=== PATIENT | female | born 1965 | race Caucasian/White ===

== ENCOUNTER 2019-04-01 01:26 | Observation (INO) | payer SELFPAY ==
[2019-04-01] MEDS ORDERED: ACETAMINOPHEN 325 MG TABLET PO ONE (04:45)
--- NOTE | 2019-04-01 05:41 | ER Document Report ---
ED General - General Chief Complaint: Neck Pain >24hrs old Stated Complaint: NECK AND HEAD PAIN/FALL Time Seen by Provider: 04/01/19 04:45 TRAVEL OUTSIDE OF THE [place] IN LAST 30 DAYS: No - Related Data Allergies/Adverse Reactions: No Known Allergies Allergy (Unverified 05/14/13 06:21) Past Medical History - Social History Smoking Status: Current Every Day Smoker Chew tobacco use (# tins/day): No Frequency of alcohol use: None Drug Abuse: None Family History: CAD, DM, Hyperlipidemia, Hypertension, Malignancy Patient has suicidal ideation: No Patient has homicidal ideation: No Malignancy Medical History: Reports: Hx Breast Cancer Psychiatric Medical History: Reports: Hx Bipolar Disorder, Hx Depression Past Surgical History: Reports: Hx Tubal Ligation - Immunizations Immunizations up to date: No Hx Diphtheria, Pertussis, Tetanus Vaccination: No Physical Exam - Vital signs Vitals: Temp Pulse Resp BP Pulse Ox 97.7 F 82 18 131/82 H 100 04/01/19 01:35 04/01/19 01:35 04/01/19 01:35 04/01/19 01:35 04/01/19 01:35 - Notes Notes: Patient presents to the emergency department complaining of pain in the back of her neck this been going on for 3 weeks. She says about 3 weeks ago she tripped over a cat and fell backwards hitting her head. She was not knocked out and did not seek medical treatment. Since that time she is been having a pain in the neck which was with movement she has pain over the whole left side of her head. Denies any abnormal vision pain shortness of breath nausea vomiting or abdominal pain. She also indicates she is had some intermittent numbness in her left arm but no weakness at all. No numbness or weakness in the legs or in the right arm. Says is been taking large doses of Motrin for the past several days taken as much as 5 pills 3 or 4 times a day. She stopped taking that several days ago because she has had some mild abdominal discomfort this has resolved. Is not had any blood in her stools Past medical history for breast cancer diagnosed about 3 years ago. She has not had any treatment for Veronica says she has no insurance she is on no meds at this time Review of systems all systems reviewed were acutely negative except as in HPI PHYSICAL EXAMINATION: There is no reviewed and vital signs noted GENERAL: Well-appearing, well-nourished she is tearful and in mild distress from pain HEAD: Atraumatic, normocephalic. EYES: Pupils equal round and reactive to light, extraocular movements intact, sclera anicteric, conjunctiva are normal. ENT: , oropharynx clear without exudates. Moist mucous membranes. NECK: She has no tenderness in the midline but there is tenderness to the left of the midline. There is no step-off. She has decreased range of motion in all directions flexion extension LUNGS: Breath sounds clear to auscultation bilaterally and equal. No wheezes rales or rhonchi. HEART: Regular rate and rhythm without murmurs ABDOMEN: Soft, nontender, normoactive bowel sounds. No guarding, no rebound. No masses appreciated. EXTREMITIES: Nontender with no edema, left upper extremity she has full range of motion but she has pain with forced abduction to the left side of her neck Back is nontender NEUROLOGICAL: Alert and oriented x4. Cranial nerves symmetrical smile and facial expressions. Motor strength is 5/5 bilaterally in the upper and lower extremities are downgoing. Negative Romberg she is intact to pinprick and light touch in the upper lower extremities and of note motor strength in the left upper extremities 5/5 flexion extension of the elbow wrist and interosseous muscles PSYCH: Normal mood, normal affect. SKIN: Warm, Dry, normal turgor, no rashes or lesions noted. Course - Vital Signs Vital signs: Temp Pulse Resp BP Pulse Ox 97.7 F 82 18 131/82 H 100 04/01/19 01:35 04/01/19 01:35 04/01/19 01:35 04/01/19 01:35 04/01/19 01:35 - Transfer of Care Care transferred to following provider: DR KOEHLER Notes: 04/01/19 06:08 DR KOEHLER Discharge - Discharge Clinical Impression: Strain of neck Disposition: HOME, SELF-CARE
[2019-04-01] MEDS ORDERED: HYDROCODONE/ACETAMINOPHEN 5-325 MG TABLET PO ONE (06:00)
[2019-04-01] MEDS: IPRATROPIUM/ALBUTEROL 0.5-2.5 MG/3 ML AMPUL NEB ONE ×2 (06:15→06:21)
[2019-04-01 06:18] LABS: ABSOLUTE BASOPHILS # (AUTO) 0.1 10^3/uL (0.0-0.2); ABSOLUTE EOSINOPHILS # (AUTO) 0.1 10^3/uL (0.0-0.6); ABSOLUTE LYMPHOCYTES (AUTO) 2.8 10^3/uL (0.5-4.7); ABSOLUTE MONOCYTES (AUTO) 0.5 10^3/uL (0.1-1.4); ABSOLUTE NEUT (AUTO) 5.5 10^3/uL (1.7-8.2); BASOPHILS % (AUTO) 0.9 % (0-2); EOSINOPHILS % (AUTO) 1.3 % (0-6); HEMATOCRIT 45.7 % (36.0-47.0); HEMOGLOBIN 15.8 g/dL (12.0-15.5); LYMPHOCYTES % (AUTO) 30.9 % (13-45); MEAN CORPUSCULAR HGB CONC 34.5 g/dL (32.0-36.0); MEAN CORPUSCULAR VOLUME 93 fl (80-97); MONOCYTES % (AUTO) 5.8 % (3-13); PLATELET COUNT 239 10^3/uL (150-450); RED BLOOD COUNT 4.92 10^6/uL (3.72-5.28); RED CELL DISTRIBUTION WIDTH 12.8 % (11.5-14.0); SEGMENTED NEUTROPHILS % (AUTO) 61.1 % (42-78); TOTAL CELLS COUNTED % (AUTO) 100 %; WHITE BLOOD COUNT 8.9 10^3/uL (4.0-10.5)
[2019-04-01 06:35] LABS: ANION GAP 6 (5-19); BLOOD UREA NITROGEN 13 mg/dL (7-20); CALCIUM 10.6 mg/dL (8.4-10.2); CARBON DIOXIDE 30 mmol/L (22-30); CHLORIDE 104 mmol/L (98-107); GLUCOSE 111 mg/dL (75-110); POTASSIUM 4.9 mmol/L (3.6-5.0)
--- NOTE | 2019-04-01 06:45 | RADIOLOGY REPORT (SQ) ---
CT cervical spine without contrast on 04/01/2019 at 5:51 AM CLINICAL INDICATION: Fall, left neck pain, history of untreated breast cancer TECHNIQUE: Multiple axial images are obtained throughout the cervical spine without the administration of contrast. Sagittal and coronal reformatted images are also performed and reviewed. This exam was performed according to our departmental dose-optimization program, which includes automated exposure control, adjustment of the mA and/or kV according to patient size and/or use of iterative reconstruction technique. Total DLP is 431.68 mGy*cm. COMPARISON: None FINDINGS: Degenerative disc disease is noted worse at C5-6. Mild degenerative facet disease is noted bilaterally. Reformatted images reveal normal alignment of the cervical spine. There is large erosive soft tissue density bony metastatic lesion involving the left skull base with erosion of the skull base along the inferior medial aspect of the left mastoid air cells with tumor extending just into the mastoid air cells and also eroding portion of the left occipital condyle and extending along the left aspect of the foramen magnum. There are no acute fracture lines. The lung apices are clear. No definite disc herniation is noted. Mass is difficult to measure on this unenhanced CT but likely measures approximately 3.4 x 2.4 x 2.8 cm. IMPRESSION: Large bony metastatic lesion with expansile soft tissue mass in the left posterior skull base with erosion along the mastoid air cells and erosion of the left occipital condyle and of the left skull base.
[2019-04-01] MEDS ORDERED: KETOROLAC TROMETHAMINE INJ/PF 30 MG/1 ML SDV IV ONE ×2 (10:23→23:45)
[2019-04-01] MEDS ORDERED: ONDANSETRON HCL INJ/PF 4 MG/2 ML SDV IV ONE (10:24)
--- NOTE | 2019-04-01 14:54 | ER Document Report ---
ED General - General Chief Complaint: Neck Pain >24hrs old Stated Complaint: NECK AND HEAD PAIN/FALL Time Seen by Provider: 04/01/19 04:45 TRAVEL OUTSIDE OF THE [place] IN LAST 30 DAYS: No - HPI Notes: Patient is a 53-year-old female who presents emergency department for evaluation of left-sided neck pain. She states she fell about 3-1/2 weeks ago. She had her head. She states she continues to have neck pain. It seems to be worsened. She is been trying ice, ibuprofen. She states is not getting any relief. She states at this point it become unbearable. She denies any loss of consciousness. She states that she had some numbness and tingling in her left hand the other day, but this is not been steady, and she denies any now. Of note, patient does have a history of breast cancer. She states she was diagnosed back in 2014. She was scheduled for surgery, but for multiple reasons did not further pursue treatment. - Related Data Allergies/Adverse Reactions: No Known Allergies Allergy (Unverified 05/14/13 06:21) Past Medical History - General Information source: Patient - Social History Smoking Status: Current Every Day Smoker Chew tobacco use (# tins/day): No Frequency of alcohol use: None Drug Abuse: None Family History: CAD, DM, Hyperlipidemia, Hypertension, Malignancy Patient has suicidal ideation: No Patient has homicidal ideation: No Malignancy Medical History: Reports: Hx Breast Cancer Psychiatric Medical History: Reports: Hx Bipolar Disorder, Hx Depression Past Surgical History: Reports: Hx Tubal Ligation - Immunizations Immunizations up to date: No Hx Diphtheria, Pertussis, Tetanus Vaccination: No Review of Systems - Review of Systems Constitutional: No symptoms reported EENT: No symptoms reported Cardiovascular: No symptoms reported Respiratory: No symptoms reported Gastrointestinal: No symptoms reported Genitourinary: No symptoms reported Musculoskeletal: See HPI Skin: No symptoms reported Neurological/Psychological: No symptoms reported Physical Exam - Vital signs Vitals: Temp Pulse Resp BP Pulse Ox 97.7 F 82 18 131/82 H 100 04/01/19 01:35 04/01/19 01:35 04/01/19 01:35 04/01/19 01:35 04/01/19 01:35 - Notes Notes: Vital signs reviewed, please refer to chart. Head is normocephalic, atraumatic. Pupils equal round, reactive to light. Examination of the spine is no midline tenderness step-off. She has paraspinal musculature tenderness from the base of the occiput down through C4-5 on the left. Heart is regular rate and rhythm. Lungs are clear to auscultation bilaterally. Abdomen is soft, nontender, normoactive bowel sounds throughout. Extremities without cyanosis, clubbing. Posterior calves are nontender. Peripheral pulses are equal. Skin is warm and dry. Patient is awake, alert, oriented x3. Cranial nerves II - XII are grossly intact without focal neurological deficits. Strength is plus 5 out of 5 bilateral upper and lower extremities. Sensation is intact. Reflexes symmetrical. Intact [id number], rapid alternating movements, [id number]. Course - Re-evaluation Re-evalutation: 04/01/19 14:52 Care of this patient was originally turned over to me at the beginning of my shift. It was expected that the patient would have a nonspecific CT finding, and follow-up with muscle relaxers. Unfortunately, CT scan did reveal findings very concerning for metastatic cancer. Given this information, I spoke with oncology. They stated they would happily participate in her care here at [facility], but there was concern that this metastatic lesion could be unstable, decision was made to proceed with neurosurgical consultation. I spoke with Dr. Gama, neurosurgeon at [facility]. He states that he felt that the images were limited, believed an MRI with and without contrast would be most useful. MRI with and without contrast ordered, images pending at this time. Patient remained stable, we will continue to monitor. 04/01/19 15:55 Patient had MRI completed, pictures were reviewed by Dr. Gama. He recommends [place] or [place] J collar. [place] collar applied here in the emergency department. He states he does not see any cord compression or signs of significant instability at this time. He recommends oncology/radiation oncology/staging before any sort of neurosurgical intervention. Patient is feeling stable at this time. She continues to have no neurological deficits. I spoke with Dr. Garvin and she will see the patient in consultation. I spoke with Dr. Zaragoza, he will admit the patient. - Vital Signs Vital signs: Temp Pulse Resp BP Pulse Ox 97.6 F 73 16 129/79 H 97 04/01/19 06:23 04/01/19 06:23 04/01/19 06:23 04/01/19 06:23 04/01/19 06:23 - Laboratory Result Diagrams: 04/01/19 06:07 04/01/19 06:07 Laboratory results interpreted by me: 04/01/19 04/01/19 06:07 06:07 Hgb 15.8 H Glucose 111 H Calcium 10.6 H - Diagnostic Test Radiology reviewed: Image reviewed, Reports reviewed Radiology results interpreted by me: 04/01/19 15:[address] 04/01/19 05:45 IMPRESSION: Large bony metastatic lesion with expansile soft tissue mass in the left posterior skull base with erosion along the mastoid air cells and erosion of the left occipital condyle and of the left skull base. Discharge - Discharge Clinical Impression: Metastatic breast cancer Condition: Stable Disposition: ADMITTED INPATIENT Admitting Provider: Mila (Hospitalist) Unit Admitted: Medical Floor
--- NOTE | 2019-04-01 16:51 | PDOC H&P ---
History of Present Illness Admission Date/PCP: 04/01/19 16:17 Patient complains of: left neck pain History of Present Illness: SAHRA BETTS is a 53 year old female with a past medical history of untreated breast cancer, depression and chronic heavy cigarette smoking who is presenting with left sided neck pain. Patient was diagnosed with breast cancer in 2014. She was recommended to go for mastectomy by Dr. Bryan however patient did not follow through recommended cancer treatments including surgery. She says that she had to deal with a lot of stress and was not amenable to "losing her breast". She was lost to follow- up as she said that she had insurance and financial issues and for some time became homeless. She reports that for over a month, she has been having occasional dizziness and vertigo. She says that she fell last month and has been having left-sided neck pain. She says that the pain has worsened in the past 5 days and has decided to go to the ER. CT imaging showed likely metastatic lesions eroding on the skull the mastoid area. Neurosurgery at [facility] was consulted by ER provider and they have recommended placing her on a c ervical collar and further metastatic work-up. On encounter, she appears comfortable. She denies numbness or paresthesias on the arms and legs. Denies weakness. She has a palpable firm, nontender mass on the right breast. Past Medical History Malignancy Medical History: Reports: Breast Cancer Psychiatric Medical History: Reports: Bipolar Disorder, Depression Past Surgical History Past Surgical History: Reports: Tubal Ligation Social History Smoking Status: Current Every Day Smoker Electronic Cigarette use?: No Family History Family History: CAD, DM, Hyperlipidemia, Hypertension, Malignancy Parental Family History Reviewed: Yes - no premature CAD Children Family History Reviewed: No Sibling(s) Family History Reviewed.: No Medication/Allergy Allergies/Adverse Reactions: No Known Allergies Allergy (Unverified 05/14/13 06:21) Review of Systems All systems: reviewed and no additional remarkable complaints except as stated - As mentioned in HPI Physical Exam Vital Signs: Temp Pulse Resp BP Pulse Ox 97.6 F 73 16 129/79 H 97 04/01/19 06:23 04/01/19 06:23 04/01/19 06:23 04/01/19 06:23 04/01/19 06:23 Intake & Output 03/31/19 04/01/19 04/02/19 06:59 06:59 06:59 Weight 196 lb 10.437 oz General appearance: PRESENT: no acute distress, well-developed, well-nourished Head exam: PRESENT: atraumatic, normocephalic Eye exam: PRESENT: conjunctiva pink, EOMI, PERRLA. ABSENT: scleral icterus Ear exam: PRESENT: normal external ear exam Mouth exam: PRESENT: moist, tongue midline Neck exam: ABSENT: carotid bruit, JVD, lymphadenopathy, thyromegaly Respiratory exam: PRESENT: clear to auscultation cindi. ABSENT: rales, rhonchi, wheezes Cardiovascular exam: PRESENT: RRR. ABSENT: diastolic murmur, rubs, systolic murmur Pulses: PRESENT: normal dorsalis pedis pul GI/Abdominal exam: PRESENT: normal bowel sounds, soft. ABSENT: distended, guarding, mass, organolmegaly, rebound, tenderness Rectal exam: PRESENT: deferred Extremities exam: PRESENT: full ROM. ABSENT: calf tenderness, clubbing, pedal edema Neurological exam: PRESENT: alert, awake, oriented to person, oriented to place, oriented to time, oriented to situation, CN II-XII grossly intact. ABSENT: motor sensory deficit Results Laboratory Results: 04/01/19 06:07 04/01/19 06:07 04/01/19 04/01/19 06:07 06:07 WBC 8.9 RBC 4.92 Hgb 15.8 H Hct 45.7 MCV 93 MCH 32.0 MCHC 34.5 RDW 12.8 Plt Count 239 Seg Neutrophils % 61.1 Sodium 139.7 Potassium 4.9 Chloride 104 Carbon Dioxide 30 Anion Gap 6 BUN 13 Creatinine 0.94 Est GFR ( Amer) > 60 Glucose 111 H Calcium 10.6 H Impressions: Cervical Spine CT 04/01/19 05:45 IMPRESSION: Large bony metastatic lesion with expansile soft tissue mass in the left posterior skull base with erosion along the mastoid air cells and erosion of the left occipital condyle and of the left skull base. Assessment and Plan - Diagnosis (1) Metastatic breast cancer Is this a current diagnosis for this admission?: Yes Plan: Patient will be admitted as OBS for further metastatic work-up. Oncology was consulted in the ER and has recommended possible radiotherapy pending further work-up. - Time Time Spent with patient: 25-34 minutes
--- NOTE | 2019-04-01 16:52 | ADVANCED CARE ---
- Diagnosis (1) Metastatic breast cancer Diagnosis Current: Yes Resuscitation Status: Do Not Resuscitate Discussion: Discussed with patient. She says that she understands she likely has stage IV breast cancer. She verbalizes she is a DNR/DNI and does not want to receive chest compressions, defibrillation or mechanical ventilation. She says she is to her but is on the process of making her daughter Starr Reese her surrogate medical decision maker.
--- NOTE | 2019-04-01 17:17 | RADIOLOGY REPORT (SQ) ---
EXAM DESCRIPTION: MRI ORBIT/FACIAL/NECK COMBO COMPLETED DATE/TIME: 04/01/2019 3:22 pm REASON FOR STUDY: Metastatic lesion to neck, base of skull COMPARISON: 04/01/2019 TECHNIQUE: Multiplanar imaging includes non-contrasted T1, T2, FLAIR, diffusion with ADC map and pos t gadolinium contrast sequences. Additional thin slice images with and without gadolinium contrast a cquired of the orbits. Images stored on PACS. CONTRAST TYPE AND DOSE: 15 mL Dotarem. RENAL FUNCTION: Not indicated. ACR Type II contrast agent associated with few, if any, unconfounded cases of NSF LIMITATIONS: None. FINDINGS: ANATOMY: No anomalies. Normal vascular flow voids. Pituitary fossa normal. CSF SPACES: Normal in size and contour. CEREBRUM: Sulci and gyri normal in size and contour. Normal white matter signal on FLAIR imaging. N o hemorrhage. No edema, masses or mass effect. No enhancing lesions. POSTERIOR FOSSA: There is an expansile, contrast-enhancing mass of the left occipital bone about the occipital condyles and margin of the foramen magnum with overt bony destruction measuring 4.2 x 2.6 x 2.6 cm (series 12, image 10, series 13, image 19). This appears to intrude upon the jugular foramen , anterior portions of the sigmoid sinus, and left mastoid air cells. No parenchymal signal alterati on. No hemorrhage. Internal auditory canals normal. DIFFUSION IMAGING: Negative for acute or sub-acute infarction. ORBITS: No masses. Globes normal. Extraocular muscles and optic nerves normal. Orbital fat clear. No inflammatory changes or enhancement. PARANASAL SINUSES: No fluid levels. Mucosa normal. OTHER: No other significant finding. IMPRESSION: 1. There is an expansile, contrast-enhancing mass of the left occipital bone about the o ccipital condyles and margin of the foramen magnum with overt bony destruction measuring 4.2 x 2.6 x 2.6 cm (series 12, image 10, series 13, image 19). This appears to intrude upon the jugular foramen, anterior portions of the sigmoid sinus, and left mastoid air cells. Primary differential considera tion is metastasis, however primary osseous or other soft tissue malignancy are differential consider ations. 2. No other evidence of malignancy or lymphadenopathy in the lower skull and brain or neck. TECHNICAL DOCUMENTATION: JOB ID: [id number] [employer]- All Rights Reserved Reading location - IP/workstation name: [email or web address]
[2019-04-01] MEDS ORDERED: INFLUENZA QUAD (6MOS+) 2019-20 VAC 0.5 ML SYR IM ONE (18:32)
[2019-04-01] MEDS: HYDROCODONE/ACETAMINOPHEN 5-325 MG TABLET PO PRN ×2 (18:49→22:55)
[2019-04-02] MEDS: HYDROCODONE/ACETAMINOPHEN 5-325 MG TABLET PO PRN (04:55)
[2019-04-02] MEDS: ONDANSETRON HCL INJ/PF 4 MG/2 ML SDV IV PRN (08:54)
[2019-04-02] MEDS: ENOXAPARIN SODIUM INJ 40 MG/0.4 ML DISP.SYRIN SUBCUT SCH (10:14)
[2019-04-02] MEDS: MORPHINE SULFATE 10 MG/ML INJ IV PRN ×3 (10:14→17:38)
[2019-04-02] MEDS ORDERED: PAMIDRONATE DISODIUM INJ 30 MG/10 ML VIAL IV ONE (11:54)
--- NOTE | 2019-04-02 12:01 | RADIOLOGY REPORT (SQ) ---
EXAM DESCRIPTION: CT ABD/PELVIS WITH IV ONLY; CT CHEST WITH COMPLETED DATE/TIME: 04/02/2019 9:41 am REASON FOR STUDY: metastatic workup COMPARISON: 2016 CONTRAST TYPE AND DOSE: Not recorded RENAL FUNCTION: GFR > 60. TECHNIQUE: CT scan of the chest performed using helical scanning technique with dynamic intravenous contrast injection. Images reviewed with lung, soft tissue and bone windows. Reconstructed coronal a nd sagittal MPR images reviewed. All images stored on PACS. CT scan of the abdomen and pelvis performed with intravenous and without oral contrastusing helical s tarun technique with dynamic intravenous contrast injection. Images reviewed with lung, soft tissu e and bone windows. Reconstructed coronal and sagittal MPR images reviewed. Delayed images for eval uation of the urinary system also acquired and evaluated. All images stored on PACS. All CT scanners at this facility use dose modulation, iterative reconstruction, and/or weight based d osing when appropriate to reduce radiation dose to as low as reasonably achievable (ALARA). [facility]: Dose Right [facility]: CareDose [facility]: Dose Right [facility]: Teradose 4D [facility]: Blackboard RADIATION DOSE: . LIMITATIONS: None. FINDINGS: CHEST: LUNGS AND PLEURA: No masses. No effusions. HILAR AND MEDIASTINAL STRUCTURES: No identified masses or abnormal nodes. HEART AND VASCULAR STRUCTURES: No aneurysm or dissection. No central pulmonary emboli. No pericardi al effusion. HARDWARE: None. THYROID AND OTHER SOFT TISSUES: 4 cm right breast mass. Significantly larger than on the previous [facility] in 2016. BONES: No significant finding. OTHER: No other significant finding. ABDOMEN AND PELVIS: LIVER: Normal size. No masses. No dilated ducts. SPLEEN: Normal size. No focal lesions. PANCREAS: No masses. No significant calcifications. No adjacent inflammation or peripancreatic fluid collections. Pancreatic duct not dilated. GALLBLADDER: No identified stones by CT criteria. No inflammatory changes to suggest cholecystitis. ADRENAL GLANDS: No significant masses or asymmetry. RIGHT KIDNEY AND URETER: No solid masses. No significant calcification. No hydronephrosis or hydroure ter. LEFT KIDNEY AND URETER: No solid masses. No significant calcification. No hydronephrosis or hydrouret er. AORTA AND VESSELS: No aneurysm. No dissection. Renal arteries, SMA, celiac without stenosis. RETROPERITONEUM: No retroperitoneal adenopathy, hemorrhage or masses. BOWEL AND PERITONEAL CAVITY: No masses or inflammatory changes. No free fluid or peritoneal masses. APPENDIX: Normal. ABDOMINAL WALL: No masses. No hernias. PELVIS: No mass or free fluid. Normal bladder. BONES: No significant or acute findings. OTHER: No other significant finding. IMPRESSION: 4 cm right breast mass, significantly larger than on the previous study in 2016. No add itional findings in the chest. NORMAL CT OF THE ABDOMEN AND PELVIS WITH ORAL AND INTRAVENOUS CONTRAST. No metastases. TECHNICAL DOCUMENTATION: JOB ID: [id number] Quality ID # [id number]: Final reports with documentation of one or more dose reduction techniques (e.g., Au tomated exposure control, adjustment of the mA and/or kV according to patient size, use of iterative reconstruction technique) 2010 [employer]- All Rights Reserved Reading location - IP/workstation name: [email or web address]
--- NOTE | 2019-04-02 12:01 | RADIOLOGY REPORT (SQ) ---
EXAM DESCRIPTION: CT ABD/PELVIS WITH IV ONLY; CT CHEST WITH COMPLETED DATE/TIME: 04/02/2019 9:41 am REASON FOR STUDY: metastatic workup COMPARISON: 2016 CONTRAST TYPE AND DOSE: Not recorded RENAL FUNCTION: GFR > 60. TECHNIQUE: CT scan of the chest performed using helical scanning technique with dynamic intravenous contrast injection. Images reviewed with lung, soft tissue and bone windows. Reconstructed coronal a nd sagittal MPR images reviewed. All images stored on PACS. CT scan of the abdomen and pelvis performed with intravenous and without oral contrastusing helical s tarun technique with dynamic intravenous contrast injection. Images reviewed with lung, soft tissu e and bone windows. Reconstructed coronal and sagittal MPR images reviewed. Delayed images for eval uation of the urinary system also acquired and evaluated. All images stored on PACS. All CT scanners at this facility use dose modulation, iterative reconstruction, and/or weight based d osing when appropriate to reduce radiation dose to as low as reasonably achievable (ALARA). [facility]: Dose Right [facility]: CareDose [facility]: Dose Right [facility]: Teradose 4D [facility]: [id number] RADIATION DOSE: . LIMITATIONS: None. FINDINGS: CHEST: LUNGS AND PLEURA: No masses. No effusions. HILAR AND MEDIASTINAL STRUCTURES: No identified masses or abnormal nodes. HEART AND VASCULAR STRUCTURES: No aneurysm or dissection. No central pulmonary emboli. No pericardi al effusion. HARDWARE: None. THYROID AND OTHER SOFT TISSUES: 4 cm right breast mass. Significantly larger than on the previous [facility] in 2016. BONES: No significant finding. OTHER: No other significant finding. ABDOMEN AND PELVIS: LIVER: Normal size. No masses. No dilated ducts. SPLEEN: Normal size. No focal lesions. PANCREAS: No masses. No significant calcifications. No adjacent inflammation or peripancreatic fluid collections. Pancreatic duct not dilated. GALLBLADDER: No identified stones by CT criteria. No inflammatory changes to suggest cholecystitis. ADRENAL GLANDS: No significant masses or asymmetry. RIGHT KIDNEY AND URETER: No solid masses. No significant calcification. No hydronephrosis or hydroure ter. LEFT KIDNEY AND URETER: No solid masses. No significant calcification. No hydronephrosis or hydrouret er. AORTA AND VESSELS: No aneurysm. No dissection. Renal arteries, SMA, celiac without stenosis. RETROPERITONEUM: No retroperitoneal adenopathy, hemorrhage or masses. BOWEL AND PERITONEAL CAVITY: No masses or inflammatory changes. No free fluid or peritoneal masses. APPENDIX: Normal. ABDOMINAL WALL: No masses. No hernias. PELVIS: No mass or free fluid. Normal bladder. BONES: No significant or acute findings. OTHER: No other significant finding. IMPRESSION: 4 cm right breast mass, significantly larger than on the previous study in 2016. No add itional findings in the chest. NORMAL CT OF THE ABDOMEN AND PELVIS WITH ORAL AND INTRAVENOUS CONTRAST. No metastases. TECHNICAL DOCUMENTATION: JOB ID: [id number] Quality ID # [id number]: Final reports with documentation of one or more dose reduction techniques (e.g., Au tomated exposure control, adjustment of the mA and/or kV according to patient size, use of iterative reconstruction technique) 2010 [employer]- All Rights Reserved Reading location - IP/workstation name: [email or web address]
--- NOTE | 2019-04-02 12:17 | PDOC CONSULTATION ---
Consultation Consult Date: 04/02/19 Provider Consulted: BENJY BELLAMY Consult reason:: Hematology/Oncology consultation was requested for patient with metastatic breast cancer. Untreated. History of Present Illness Admission Date/PCP: 04/01/19 16:17 History of Present Illness: SAHRA BETTS is a 53 year old female with no regular health care. She states that in 1999 she found a breast lump. However, she has many excuses for why she did not seek treatment. She did undergo a biopsy of the breast mass by Dr. Bryan in 2014. At that time, she was told that she had Stage II breast cancer and further curative therapy was recommended. However, she states that she was stubborn and did not have any treatment. Family states that they have been trying to get to [place] [facility] [place] for quite some time. About 6 weeks ago, she began feeling dizzy. She fell and hit her head and since that time has had progressive headaches. Much worse when lying supine. She finally presented to the ED and was found to have extensive metastatic disease in her C- spine and base of her skull. No evidence of cord compression or compromise, but quite extensive disease. Past Medical History Malignancy Medical History: Reports: Breast Cancer Psychiatric Medical History: Reports: Bipolar Disorder, Depression Past Surgical History Past Surgical History: Reports: Tubal Ligation Social History Smoking Status: Current Every Day Smoker Electronic Cigarette use?: No Drugs: None Past Social History Note: 2 children, 3.5 GKs. - Advance Directive Resuscitation Status: Do Not Resuscitate Family History Family History: CAD, DM, Hyperlipidemia, Hypertension, Malignancy Parental Family History Reviewed: Yes - MGM age 50 with breast cancer. All maternal aunts with various [employer] ca Children Family History Reviewed: No Sibling(s) Family History Reviewed.: No Medication/Allergy Home Medications: No Home Medications 04/01/19 Allergies/Adverse Reactions: No Known Allergies Allergy (Unverified 05/14/13 06:21) Review of Systems Constitutional: PRESENT: headache(s). ABSENT: fever(s) Eyes: ABSENT: visual disturbances Ears: ABSENT: hearing changes Nose, Mouth, and Throat: ABSENT: sore throat Cardiovascular: ABSENT: chest pain Respiratory: ABSENT: dyspnea Gastrointestinal: ABSENT: abdominal pain, constipation Genitourinary: ABSENT: dysuria Musculoskeletal: ABSENT: back pain, muscle weakness Integumentary: ABSENT: rash Neurological: PRESENT: vertigo Psychiatric: PRESENT: anxiety Hematologic/Lymphatic: ABSENT: easy bruising Physical Exam Vital Signs: Temp Pulse Resp BP Pulse Ox 97.8 F 88 17 111/77 98 04/02/19 08:05 04/02/19 08:05 04/02/19 08:05 04/02/19 08:05 04/02/19 08:05 Intake & Output 04/01/19 04/02/19 04/03/19 06:59 06:59 06:59 Intake Total 420 Balance 420 Weight 89.2 kg 89.2 kg General appearance: PRESENT: no acute distress, well-developed, well-nourished Exam: 53 year old female. and daughter are at bedside. Head exam: PRESENT: normocephalic Eye exam: PRESENT: EOMI, PERRLA Mouth exam: PRESENT: tongue midline Neck exam: PRESENT: other - C-collar in place. Respiratory exam: PRESENT: chest wall tenderness, unlabored Cardiovascular exam: PRESENT: RRR GI/Abdominal exam: PRESENT: normal bowel sounds, soft. ABSENT: tenderness Extremities exam: ABSENT: pedal edema Musculoskeletal exam: PRESENT: ambulatory, full ROM, normal inspection Neurological exam: PRESENT: alert, awake Psychiatric exam: PRESENT: appropriate affect Focused psych exam: PRESENT: pressured speech Skin exam: PRESENT: normal color Additional comments: Right breast with 3 x 3 cm palpable lesion at 12:00 position. Left breast exam was deferred. I did not do full LN evaluation today. Results Laboratory Results: 04/01/19 06:07 04/01/19 06:07 Impressions: Cervical Spine CT 04/01/19 05:45 IMPRESSION: Large bony metastatic lesion with expansile soft tissue mass in the left posterior skull base with erosion along the mastoid air cells and erosion of the left occipital condyle and of the left skull base. Orbits/Face/Neck MRI 04/01/19 10:48 IMPRESSION: 1. There is an expansile, contrast-enhancing mass of the left occipital bone about the occipital condyles and margin of the foramen magnum with overt bony destruction measuring 4.2 x 2.6 x 2.6 cm (series 12, image 10, series 13, image 19). This appears to intrude upon the jugular foramen, anterior portions of the sigmoid sinus, and left mastoid air cells. Primary differential consideration is metastasis, however primary osseous or other soft tissue malignancy are differential considerations. 2. No other evidence of malignancy or lymphadenopathy in the lower skull and brain or neck. Status: Image reviewed by me Assessment & Plan - Diagnosis (1) Metastatic breast cancer Is this a current diagnosis for this admission?: Yes Plan: I had a very long conversation with the patient and family. Her scans were also previously reviewed by neurosurgery. They did not feel surgical stabilization was necessary at this time. We discussed the fact that this appears to now be a stage IV breast cancer. Original biopsy was ER+GA+Her2-. I am awaiting CT C/A/P to make sure no other areas of concern currently. She agrees to any treatment recommended at this point. We discussed radiation for the pain in her neck. She agrees. I will arrange for Dr. Trinidad to see her Thursday morning. We discussed starting Aromatase inhibitor. It has been about 18 months since she had any periods. She should be safe to start Arimidex. I will order now. I will also give 1 dose Bisphosphonate for the bone mets. I will check CBC, CMP, Vit D, CA 15-3 in the morning as baseline. She should be able to go home Thursday, as soon as radiation oncology has seen her and says OK. - Plan Summary Plan Summary: Patient was discussed with Dr. Lundy. I spent extensive time with patient and family answering all questions.
[2019-04-02] MEDS ORDERED: PAMIDRONATE DISODIUM 90 MG in NORMAL SALINE 250 ML IV ONE (13:00)
--- NOTE | 2019-04-02 16:48 | PDOC PROGRESS REPORT ---
Subjective Progress Note for:: 04/02/19 Subjective:: Patient complains of severe left neck pain not relieved by [place]. She was given morphine with good response. She did complain of having some nausea after she got the [place] last night. Otherwise, she denies other acute complaints. Reason For Visit: METASTATIC BREAST CANCER Physical Exam Vital Signs: Temp Pulse Resp BP Pulse Ox 97.8 F 88 17 111/77 98 04/02/19 08:05 04/02/19 08:05 04/02/19 08:05 04/02/19 08:05 04/02/19 08:05 Intake & Output 04/01/19 04/02/19 04/03/19 06:59 06:59 06:59 Intake Total 420 Balance 420 Weight 196 lb 10.437 oz 196 lb 10.437 oz General appearance: PRESENT: no acute distress, well-developed, well-nourished Head exam: PRESENT: atraumatic, normocephalic Eye exam: PRESENT: conjunctiva pink, EOMI, PERRLA. ABSENT: scleral icterus Ear exam: PRESENT: normal external ear exam Mouth exam: PRESENT: moist, tongue midline Neck exam: ABSENT: carotid bruit, JVD, lymphadenopathy, thyromegaly Respiratory exam: PRESENT: clear to auscultation cindi. ABSENT: rales, rhonchi, wheezes Cardiovascular exam: PRESENT: RRR. ABSENT: diastolic murmur, rubs, systolic murmur Pulses: PRESENT: normal dorsalis pedis pul GI/Abdominal exam: PRESENT: normal bowel sounds, soft. ABSENT: distended, guarding, mass, organolmegaly, rebound, tenderness Rectal exam: PRESENT: deferred Extremities exam: PRESENT: full ROM. ABSENT: calf tenderness, clubbing, pedal edema Neurological exam: PRESENT: alert, awake, oriented to person, oriented to place, oriented to time, oriented to situation, CN II-XII grossly intact. ABSENT: motor sensory deficit Results Laboratory Results: 04/01/19 06:07 04/01/19 06:07 Impressions: Cervical Spine CT 04/01/19 05:45 IMPRESSION: Large bony metastatic lesion with expansile soft tissue mass in the left posterior skull base with erosion along the mastoid air cells and erosion of the left occipital condyle and of the left skull base. Orbits/Face/Neck MRI 04/01/19 10:48 IMPRESSION: 1. There is an expansile, contrast-enhancing mass of the left occipital bone about the occipital condyles and margin of the foramen magnum with overt bony destruction measuring 4.2 x 2.6 x 2.6 cm (series 12, image 10, series 13, image 19). This appears to intrude upon the jugular foramen, anterior portions of the sigmoid sinus, and left mastoid air cells. Primary differential consideration is metastasis, however primary osseous or other soft tissue malignancy are differential considerations. 2. No other evidence of malignancy or lymphadenopathy in the lower skull and brain or neck. Assessment and Plan - Diagnosis (1) Metastatic breast cancer Is this a current diagnosis for this admission?: Yes Plan: Patient will be admitted as OBS for further metastatic work-up. Oncology was consulted in the ER and has recommended possible radiotherapy pending further work-up. 04/02: Will add IV morphine on top of Percocet. CT of the abdomen, pelvis and chest ordered. Oncology following.
[2019-04-02] MEDS ORDERED: MORPHINE SULFATE 10 MG/ML INJ IV PRN (17:27)
[2019-04-02] MEDS ORDERED: HYDROMORPHONE HCL INJ/PF 2 MG/ML AMPULE IV PRN (18:52)
[2019-04-02] MEDS ORDERED: HYDROMORPHONE HCL INJ/PF 2 MG/ML AMPULE ONE (18:57)
[2019-04-02] MEDS ORDERED: HYDROMORPHONE HCL INJ/PF 2 MG/ML AMPULE IV ONE (19:15)
[2019-04-02] MEDS ORDERED: LORAZEPAM INJ 2 MG/1 ML VIAL IV ONE (21:00)
[2019-04-02] MEDS: METHYLPREDNISOLONE INJ 40 MG/1 ML SDV IV SCH (21:26)
[2019-04-02] MEDS: KETOROLAC TROMETHAMINE INJ/PF 30 MG/1 ML SDV IV PRN (21:27)
[2019-04-03] MEDS: KETOROLAC TROMETHAMINE INJ/PF 30 MG/1 ML SDV IV PRN (04:52)
[2019-04-03] MEDS: ONDANSETRON HCL INJ/PF 4 MG/2 ML SDV IV PRN ×2 (04:52→22:21)
[2019-04-03 05:27] LABS: ABSOLUTE LYMPHOCYTES (AUTO) 0.8 10^3/uL (0.5-4.7); BASOPHILS % (AUTO) 0.3 % (0-2); HEMOGLOBIN 14.4 g/dL (12.0-15.5); MEAN CORPUSCULAR HEMOGLOBIN 31.6 pg (27.0-33.4); MEAN CORPUSCULAR HGB CONC 34.4 g/dL (32.0-36.0); MEAN CORPUSCULAR VOLUME 92 fl (80-97); MONOCYTES % (AUTO) 0.6 % (3-13); PLATELET COUNT 225 10^3/uL (150-450); RED BLOOD COUNT 4.56 10^6/uL (3.72-5.28); RED CELL DISTRIBUTION WIDTH 12.6 % (11.5-14.0); SEGMENTED NEUTROPHILS % (AUTO) 89.1 % (42-78); TOTAL CELLS COUNTED % (AUTO) 100 %; WHITE BLOOD COUNT 7.9 10^3/uL (4.0-10.5)
[2019-04-03 05:52] LABS: ALBUMIN 4.5 g/dL (3.5-5.0); ALKALINE PHOSPHATASE 96 U/L (38-126); ANION GAP 12 (5-19); ASPARTATE AMINO TRANSFERASE 20 U/L (14-36); BILIRUBIN,DIRECT 0.2 mg/dL (0.0-0.4); BILIRUBIN,TOTAL 0.5 mg/dL (0.2-1.3); BLOOD UREA NITROGEN 21 mg/dL (7-20); CALCIUM 10.2 mg/dL (8.4-10.2); CARBON DIOXIDE 27 mmol/L (22-30); CHLORIDE 102 mmol/L (98-107); GLUCOSE 173 mg/dL (75-110); POTASSIUM 4.6 mmol/L (3.6-5.0); TOTAL PROTEIN 7.2 g/dL (6.3-8.2)
[2019-04-03] MEDS: METHYLPREDNISOLONE INJ 40 MG/1 ML SDV IV SCH (09:40)
[2019-04-03] MEDS: ENOXAPARIN SODIUM INJ 40 MG/0.4 ML DISP.SYRIN SUBCUT SCH (09:40)
[2019-04-03] MEDS: ANASTROZOLE 1 MG TABLET PO SCH (09:41)
[2019-04-03] MEDS: GABAPENTIN 100 MG CAPSULE PO SCH ×3 (11:32→22:22)
[2019-04-03] MEDS: OXYCODONE HCL SR 10 MG TABLET PO SCH ×2 (11:33→22:21)
--- NOTE | 2019-04-03 13:46 | PDOC PROGRESS REPORT ---
Subjective Progress Note for:: 04/03/19 Subjective:: Patient complains of severe left neck pain not relieved by [place]. She was given morphine with good response. She did complain of having some nausea after she got the [place] last night. Otherwise, she denies other acute complaints. 04/03: Patient complained of severe neck pain overnight requiring IV pain medications. She reported nausea after she was given Percocet yesterday. Upon encounter, she says she feels a little better. Discussed plan to find a good P O regimen to control her pain. We will try long-acting oxycodone and gabapentin today. She is agreeable to this plan. Reason For Visit: METASTATIC BREAST CANCER Physical Exam Vital Signs: Temp Pulse Resp BP Pulse Ox 97.8 F 76 16 116/61 99 04/03/19 12:10 04/03/19 12:10 04/03/19 12:10 04/03/19 12:10 04/03/19 12:10 Intake & Output 04/02/19 04/03/19 04/04/19 06:59 06:59 06:59 Intake Total 420 1090 260 Balance 420 1090 260 Weight 196 lb 10.437 oz 196 lb 10.437 oz General appearance: PRESENT: no acute distress, well-developed, well-nourished Head exam: PRESENT: atraumatic, normocephalic Eye exam: PRESENT: conjunctiva pink, EOMI, PERRLA. ABSENT: scleral icterus Ear exam: PRESENT: normal external ear exam Mouth exam: PRESENT: moist, tongue midline Neck exam: ABSENT: carotid bruit, JVD, lymphadenopathy, thyromegaly Respiratory exam: PRESENT: clear to auscultation cindi. ABSENT: rales, rhonchi, wheezes Cardiovascular exam: PRESENT: RRR. ABSENT: diastolic murmur, rubs, systolic murmur Pulses: PRESENT: normal dorsalis pedis pul GI/Abdominal exam: PRESENT: normal bowel sounds, soft. ABSENT: distended, guar ding, mass, organolmegaly, rebound, tenderness Rectal exam: PRESENT: deferred Extremities exam: PRESENT: full ROM. ABSENT: calf tenderness, clubbing, pedal edema Neurological exam: PRESENT: alert, awake, oriented to person, oriented to place, oriented to time, oriented to situation, CN II-XII grossly intact. ABSENT: motor sensory deficit Results Laboratory Results: 04/03/19 04:45 04/03/19 04:45 04/03/19 04/03/19 04:45 04:45 WBC 7.9 RBC 4.56 Hgb 14.4 Hct 42.0 MCV 92 MCH 31.6 MCHC 34.4 RDW 12.6 Plt Count 225 Seg Neutrophils % 89.1 H Sodium 140.5 Potassium 4.6 Chloride 102 Carbon Dioxide 27 Anion Gap 12 BUN 21 H Creatinine 0.91 Est GFR ( Amer) > 60 Glucose 173 H Calcium 10.2 Total Bilirubin 0.5 AST 20 Alkaline Phosphatase 96 Total Protein 7.2 Albumin 4.5 Impressions: Cervical Spine CT 04/01/19 05:45 IMPRESSION: Large bony metastatic lesion with expansile soft tissue mass in the left posterior skull base with erosion along the mastoid air cells and erosion of the left occipital condyle and of the left skull base. Orbits/Face/Neck MRI 04/01/19 10:48 IMPRESSION: 1. There is an expansile, contrast-enhancing mass of the left occipital bone about the occipital condyles and margin of the foramen magnum with overt bony destruction measuring 4.2 x 2.6 x 2.6 cm (series 12, image 10, series 13, image 19). This appears to intrude upon the jugular foramen, anterior portions of the sigmoid sinus, and left mastoid air cells. Primary differential consideration is metastasis, however primary osseous or other soft tissue malignancy are differential considerations. 2. No other evidence of malignancy or lymphadenopathy in the lower skull and brain or neck. Abdomen/Pelvis CT 04/01/19 18:56 IMPRESSION: 4 cm right breast mass, significantly larger than on the previous study in 2016. No additional findings in the chest. NORMAL CT OF THE ABDOMEN AND PELVIS WITH ORAL AND INTRAVENOUS CONTRAST. No metastases. Chest CT 04/01/19 18:57 IMPRESSION: 4 cm right breast mass, significantly larger than on the previous study in 2016. No additional findings in the chest. NORMAL CT OF THE ABDOMEN AND PELVIS WITH ORAL AND INTRAVENOUS CONTRAST. No metastases. Assessment and Plan - Diagnosis (1) Metastatic breast cancer Is this a current diagnosis for this admission?: Yes Plan: Patient will be admitted as OBS for further metastatic work-up. Oncology was consulted in the ER and has recommended possible radiotherapy pending further work-up. 04/02: Will add IV morphine on top of Percocet. CT of the abdomen, pelvis and chest ordered. Oncology following. 04/03: Patient complained of severe neck pain overnight requiring IV pain medications. She reported nausea after she was given Percocet yesterday. Upon encounter, she says she feels a little better. Discussed plan to find a good PO regimen to control her pain. We will try long-acting oxycodone and gabapentin today. She is agreeable to this plan. (2) Intractable pain Is this a current diagnosis for this admission?: Yes Plan: As per number 1.
[2019-04-03] MEDS ORDERED: ALPRAZOLAM 0.25 MG TABLET PO PRN (15:09)
[2019-04-03] MEDS: PREDNISONE 10 MG TABLET PO SCH (17:07)
[2019-04-04] MEDS: GABAPENTIN 100 MG CAPSULE PO SCH ×2 (05:57→16:19)
--- NOTE | 2019-04-04 07:56 | PDOC PROGRESS REPORT ---
Subjective Progress Note for:: 04/04/19 Subjective:: Patient states that 2 nights ago was quite rough. Increased pain, anxiety. However, the new pain and anxiety meds have helped. She is feeling better today. Still up walking around in her room. Sister is at bedside. Some vomiting with pain meds, but now much better. ROS: No dyspnea. No numbness. No weakness. Reason For Visit: METASTATIC BREAST CANCER Physical Exam Vital Signs: Temp Pulse Resp BP Pulse Ox 97.8 F 85 20 125/62 90 L 04/03/19 23:38 04/03/19 23:38 04/03/19 23:38 04/03/19 23:38 04/03/19 23:38 Intake & Output 04/03/19 04/04/19 04/05/19 06:59 06:59 06:59 Intake Total 1090 900 Balance 1090 900 Weight 89.2 kg 94.3 kg General appearance: PRESENT: no acute distress, well-developed, well-nourished Head exam: PRESENT: normocephalic Respiratory exam: PRESENT: unlabored Extremities exam: ABSENT: pedal edema Musculoskeletal exam: PRESENT: ambulatory Neurological exam: PRESENT: alert, awake, oriented to person, oriented to place, oriented to time, oriented to situation Psychiatric exam: PRESENT: appropriate affect Focused psych exam: PRESENT: pressured speech, restlessness Skin exam: PRESENT: normal color Results Laboratory Results: 04/03/19 04:45 04/03/19 04:45 Impressions: Cervical Spine CT 04/01/19 05:45 IMPRESSION: Large bony metastatic lesion with expansile soft tissue mass in the left posterior skull base with erosion along the mastoid air cells and erosion of the left occipital condyle and of the left skull base. Orbits/Face/Neck MRI 04/01/19 10:48 IMPRESSION: 1. There is an expansile, contrast-enhancing mass of the left occipital bone about the occipital condyles and margin of the foramen magnum with overt bony destruction measuring 4.2 x 2.6 x 2.6 cm (series 12, image 10, series 13, image 19). This appears to intrude upon the jugular foramen, anterior portions of the sigmoid sinus, and left mastoid air cells. Primary differential consideration is metastasis, however primary osseous or other soft tissue malignancy are differential considerations. 2. No other evidence of malignancy or lymphadenopathy in the lower skull and brain or neck. Abdomen/Pelvis CT 04/01/19 18:56 IMPRESSION: 4 cm right breast mass, significantly larger than on the previous study in 2016. No additional findings in the chest. NORMAL CT OF THE ABDOMEN AND PELVIS WITH ORAL AND INTRAVENOUS CONTRAST. No metastases. Chest CT 04/01/19 18:57 IMPRESSION: 4 cm right breast mass, significantly larger than on the previous study in 2016. No additional findings in the chest. NORMAL CT OF THE ABDOMEN AND PELVIS WITH ORAL AND INTRAVENOUS CONTRAST. No metastases. Status: Image reviewed by me Assessment & Plan - Diagnosis (1) Metastatic breast cancer Is this a current diagnosis for this admission?: Yes Plan: No other evidence of mets on CT of C/A/P/ Only bone mets to C-spine and soft- tissue in neck, other than the primary breast lesion. She will start radiation therapy today and if OK with Dr. Trinidad may be discharged to home later tonight. She should continue Arimidex daily as outpatient. She did receive pamidronate x 1 dose. Further bisphosphonates will be given as outpatient. I discussed her pain medicine regimen with Dr. Zaragoza. She will follow-up in my office in about 2 weeks. Please call me if anything else is needed. - Time Time Spent with patient: 15-24 minutes
[2019-04-04] MEDS: PREDNISONE 10 MG TABLET PO SCH (09:35)
[2019-04-04] MEDS: ENOXAPARIN SODIUM INJ 40 MG/0.4 ML DISP.SYRIN SUBCUT SCH (09:35)
[2019-04-04] MEDS: ANASTROZOLE 1 MG TABLET PO SCH (09:36)
[2019-04-04] MEDS ORDERED: MORPHINE SULFATE SR 15 MG TABLET PO SCH (10:00)
--- NOTE | 2019-04-04 14:45 | PDOC DISCHARGE SUMMARY ---
Impression - Admit/DC Date/PCP Admission Date/Primary Care Provider: 04/01/19 16:17 Discharge Date: 04/04/19 - Discharge Diagnosis (1) Metastatic breast cancer Is this a current diagnosis for this admission?: Yes (2) Intractable pain Is this a current diagnosis for this admission?: Yes - Additional Information Resuscitation Status: Do Not Resuscitate Prescriptions: Anastrozole [Arimidex 1 mg Tablet] 1 mg PO DAILY #30 tablet Morphine Sulfate [Ms-Contin Sr 15 mg Tablet] 15 mg PO Q12 #60 tablet.sa Gabapentin [Neurontin 300 mg Capsule] 300 mg PO Q8 PRN #90 cap PRN Reason: Oxycodone HCl/Acetaminophen [Percocet 5-325 mg Tablet] 1 tab PO ASDIR PRN #15 tab PRN Reason: For Breakthrough Pain Alprazolam [Xanax 0.25 mg Tablet] 0.25 mg PO HSP PRN #20 tablet PRN Reason: Home Medications: Alprazolam [Xanax 0.25 mg Tablet] 0.25 mg PO HSP PRN #20 tablet 04/04/19 Anastrozole [Arimidex 1 mg Tablet] 1 mg PO DAILY #30 tablet 04/04/19 Gabapentin [Neurontin 300 mg Capsule] 300 mg PO Q8 PRN #90 cap 04/04/19 Morphine Sulfate [Ms-Contin Sr 15 mg Tablet] 15 mg PO Q12 #60 tablet.sa 04/04/19 Oxycodone HCl/Acetaminophen [Percocet 5-325 mg Tablet] 1 tab PO ASDIR PRN #15 tab 04/04/19 History of Present Illiness History of Present Illness: SAHRA BETTS is a 53 year old female with a past medical history of untreated breast cancer, depression and chronic heavy cigarette smoking who is presenting with left sided neck pain. Patient was diagnosed with breast cancer in 2014. She was recommended to go for mastectomy by Dr. Bryan however patient did not follow through recommended cancer treatments including surgery. She says that she had to deal with a lot of stress and was not amenable to "losing her breast". She was lost to follow- up as she said that she had insurance and financial issues and for some time became homeless. She reports that for over a month, she has been having occasional dizziness and vertigo. She says that she fell last month and has been having left-sided neck pain. She says that the pain has worsened in the past 5 days and has decided to go to the ER. CT imaging showed likely metastatic lesions eroding on the skull the mastoid area. Neurosurgery at [facility] was consulted by ER provider and they have recommended placing her on a cervical collar and further metastatic work-up. On encounter, she appears comfortable. She denies numbness or paresthesias on the arms and legs. Denies weakness. She has a palpable firm, nontender mass on the right breast. Hospital Course Hospital Course: Patient was admitted for intractable pain secondary to metastatic intracranial bony lesions. She was also evaluated by oncology. She was initially requiring IV pain medications. She did make herself a DNR/DNI. Her pain was eventually controlled on oral regimen. She was also seen by radiation oncology (Dr. Trinidad) as she will be receiving radiation treatments outpatient. She will closely follow-up with Dr. Carvajal and rad/onc. Physical Exam Vital Signs: Temp Pulse Resp BP Pulse Ox 98.4 F 81 18 112/83 98 04/04/19 12:04 04/04/19 12:04 04/04/19 12:04 04/04/19 12:04 04/04/19 12:04 Intake & Output 04/03/19 04/04/19 04/05/19 06:59 06:59 06:59 Intake Total 1090 900 356 Balance 1090 900 356 Weight 196 lb 10.437 oz 207 lb 14.334 oz General appearance: PRESENT: no acute distress, well-developed, well-nourished Head exam: PRESENT: atraumatic, normocephalic Eye exam: PRESENT: conjunctiva pink, EOMI, PERRLA. ABSENT: scleral icterus Ear exam: PRESENT: normal external ear exam Mouth exam: PRESENT: moist, tongue midline Neck exam: ABSENT: carotid bruit, JVD, lymphadenopathy, thyromegaly Respiratory exam: PRESENT: clear to auscultation cindi. ABSENT: rales, rhonchi, wheezes Cardiovascular exam: PRESENT: RRR. ABSENT: diastolic murmur, rubs, systolic murmur Pulses: PRESENT: normal dorsalis pedis pul GI/Abdominal exam: PRESENT: normal bowel sounds, soft. ABSENT: distended, guarding, mass, organolmegaly, rebound, tenderness Rectal exam: PRESENT: deferred Extremities exam: PRESENT: full ROM. ABSENT: calf tenderness, clubbing, pedal edema Neurological exam: PRESENT: alert, awake, oriented to person, oriented to place, oriented to time, oriented to situation, CN II-XII grossly intact. ABSENT: motor sensory deficit Results Laboratory Results: WBC 7.9 10^3/uL (4.0-10.5) 04/03/19 04:45 RBC 4.56 10^6/uL (3.72-5.28) 04/03/19 04:45 Hgb 14.4 g/dL (12.0-15.5) 04/03/19 04:45 Hct 42.0 % (36.0-47.0) 04/03/19 04:45 MCV 92 fl (80-97) 04/03/19 04:45 MCH 31.6 pg (27.0-33.4) 04/03/19 04:45 MCHC 34.4 g/dL (32.0-36.0) 04/03/19 04:45 RDW 12.6 % (11.5-14.0) 04/03/19 04:45 Plt Count 225 10^3/uL (150-450) 04/03/19 04:45 Lymph % (Auto) 10.0 % (13-45) L 04/03/19 04:45 [place] % (Auto) 0.6 % (3-13) L 04/03/19 04:45 Eos % (Auto) 0.0 % (0-6) 04/03/19 04:45 Baso % (Auto) 0.3 % (0-2) 04/03/19 04:45 Absolute Neuts (auto) 7.0 10^3/uL (1.7-8.2) 04/03/19 04:45 Absolute Lymphs (auto) 0.8 10^3/uL (0.5-4.7) 04/03/19 04:45 Absolute Monos (auto) 0.0 10^3/uL (0.1-1.4) L 04/03/19 04:45 Absolute Eos (auto) 0.0 10^3/uL (0.0-0.6) 04/03/19 04:45 Absolute Basos (auto) 0.0 10^3/uL (0.0-0.2) 04/03/19 04:45 Seg Neutrophils % 89.1 % (42-78) H 04/03/19 04:45 Sodium 140.5 mmol/L (137-145) 04/03/19 04:45 Potassium 4.6 mmol/L (3.6-5.0) 04/03/19 04:45 Chloride 102 mmol/L (98-107) 04/03/19 04:45 Carbon Dioxide 27 mmol/L (22-30) 04/03/19 04:45 Anion Gap 12 (5-19) 04/03/19 04:45 BUN 21 mg/dL (7-20) H 04/03/19 04:45 Creatinine 0.91 mg/dL (0.52-1.25) 04/03/19 04:45 Est GFR ( Amer) > 60 (>60) 04/03/19 04:45 Est GFR (MDRD) Non-Af > 60 (>60) 04/03/19 04:45 Glucose 173 mg/dL (75-110) H 04/03/19 04:45 Calcium 10.2 mg/dL (8.4-10.2) 04/03/19 04:45 Total Bilirubin 0.5 mg/dL (0.2-1.3) 04/03/19 04:45 Direct Bilirubin 0.2 mg/dL (0.0-0.4) 04/03/19 04:45 Neonat Total Bilirubin Not Reportable 04/03/19 04:45 Neonat Direct Bilirubin Not Reportable 04/03/19 04:45 Neonat Indirect Bili Not Reportable 04/03/19 04:45 AST 20 U/L (14-36) 04/03/19 04:45 ALT 15 U/L (<35) 04/03/19 04:45 Alkaline Phosphatase 96 U/L (38-126) 04/03/19 04:45 Total Protein 7.2 g/dL (6.3-8.2) 04/03/19 04:45 Albumin 4.5 g/dL (3.5-5.0) 04/03/19 04:45 CA 15-3 Antigen 24.7 U/mL (0.0-25.0) 04/03/19 04:45 Vitamin D 25-Hydroxy 33.3 ng/mL (14.7-68.3) 04/03/19 04:45 Impressions: Cervical Spine CT 04/01/19 05:45 IMPRESSION: Large bony metastatic lesion with expansile soft tissue mass in the left posterior skull base with erosion along the mastoid air cells and erosion of the left occipital condyle and of the left skull base. Orbits/Face/Neck MRI 04/01/19 10:48 IMPRESSION: 1. There is an expansile, contrast-enhancing mass of the left occipital bone about the occipital condyles and margin of the foramen magnum with overt bony destruction measuring 4.2 x 2.6 x 2.6 cm (series 12, image 10, series 13, image 19). This appears to intrude upon the jugular foramen, anterior portions of the sigmoid sinus, and left mastoid air cells. Primary differential consideration is metastasis, however primary osseous or other soft tissue malignancy are differential considerations. 2. No other evidence of malignancy or lymphadenopathy in the lower skull and brain or neck. Abdomen/Pelvis CT 04/01/19 18:56 IMPRESSION: 4 cm right breast mass, significantly larger than on the previous study in 2016. No additional findings in the chest. NORMAL CT OF THE ABDOMEN AND PELVIS WITH ORAL AND INTRAVENOUS CONTRAST. No metastases. Chest CT 04/01/19 18:57 IMPRESSION: 4 cm right breast mass, significantly larger than on the previous study in 2016. No additional findings in the chest. NORMAL CT OF THE ABDOMEN AND PELVIS WITH ORAL AND INTRAVENOUS CONTRAST. No metastases. Stroke Is this a Stroke Patient?: No Acute Heart Failure - Is this a Heart Failure Patient?: No
[2019-04-04 16:36] VITALS: BP 124/82
== END 2019-04-04 17:14 | disposition home or self-care (01) ==
LOC: ER 01:26 → INTOOBSV 16:17 → EH 16:17 → 4N 17:38
PROVIDERS: ADMIT Internal Medicine; ATTEND Internal Medicine
DX: C50.919 Malignant neoplasm of unspecified site of unspecified female breast (principal); C79.51 Secondary malignant neoplasm of bone; C79.89 Secondary malignant neoplasm of other specified sites; R51 Headache; R42 Dizziness and giddiness; F17.200 Nicotine dependence, unspecified, uncomplicated; F41.9 Anxiety disorder, unspecified; N91.2 Amenorrhea, unspecified; Z66 Do not resuscitate; Z79.899 Other long term (current) drug therapy; Z59.8 Other problems related to housing and economic circumstances; Z73.3 Stress, not elsewhere classified; R11.2 Nausea with vomiting, unspecified; T40.2X5A Adverse effect of other opioids, initial encounter; Y92.239 Unspecified place in hospital as the place of occurrence of the external cause; S16.1XXA Strain of muscle, fascia and tendon at neck level, initial encounter; W01.0XXA Fall on same level from slipping, tripping and stumbling without subsequent striking against object, initial encounter; Z91.19 Patient's noncompliance with other medical treatment and regimen; Z80.3 Family history of malignant neoplasm of breast; Z82.49 Family history of ischemic heart disease and other diseases of the circulatory system
CPT/HCPCS: 99284; 96374; 96375; 36415 ×2; 85025 ×2; 80048; 80053; 86300; 82306; 70543; 71260; 72125; 74177; G0378 ×5; L0172; A9576; J3490 ×7; J2920 ×2; J1885 ×3; J2270; J1650 ×3; J1170 ×2; J2060; J7512 ×2; J2405 ×3; J7050; J2430; J7620

== ENCOUNTER → 2019-04-28 | Day surgery (SDC) | payer MEDICAID ==
[~2019-04-28] MED LIST: LIDOCAINE 2% INJ (20 MG/ML) 20 ML MDV ONE
--- NOTE | 2019-05-03 10:26 | WOMENS IMAGING REPORT ---
EXAM DESCRIPTION: U/S BREAST BX; RIGHT DIAGNOSTIC MAMMO W/CAD COMPLETED DATE/TIME: 04/28/2019 2:15 pm; 04/28/2019 2:19 pm REASON FOR STUDY: C50.211 MALIGNANT NEOPLASM OF UPPER-INNER QUADRANT OF RIGHT FEMALE BREAST; C50.211 S/P RT BREAST US BX C50.211 MALIG NEOPLM OF UPPER-INNER QUADRANT OF RIGHT FEMALE C79.51 SECONDARY MALIGNANT NEOPLASM OF BONE COMPARISON: None. TECHNIQUE: The procedure was discussed with the patient and the patient agreed to proceed. The patient was scanned and the area of interest in the 12 o'clock position 10 cm from the nipple of the right breast was localized. This correlates with the area of concern on prior imaging studies. This area was targeted for ultrasound-guided core biopsy. After sterile skin prep and 3.5 mL local lidocaine 1% skin and deep tissue anesthesia, a 14 gauge coa xial core biopsy needle was used to obtain several cores of tissue from the lesion. Under ultrasound guidance, a ribbon clip was placed in the areas sampled. There were no immediate post-procedure com plications. MAMMOGRAM: Post-procedure two view mammogram was acquired in the digital mammogram suite. The clip wa s in the expected location. No significant hematoma. Pathology yields a diagnosis of invasive ductal carcinoma Pathology is concordant. LIMITATIONS: None. FINDINGS: Ultrasound guided breast biopsy as described above. POST PROCEDURE MAMMOGRAMS FOR MARKER PLACEMENT: Yes IMPRESSION: ULTRASOUND-GUIDED CORE BIOPSY OF THE RIGHT BREAST YIELDS A DIAGNOSIS OF INVASIVE DUCTAL CARCINOMA BI-RADS 6 Known biopsy-proven malignancy. Appropriate action should be taken. COMMENT: COMMUNICATION: THESE RESULTS WERE DISCUSSED WITH THE PATIENT'S 4 CM, 05/02/2019. SHE UNDER STANDS THIS IS A MALIGNANT DIAGNOSIS WHICH REQUIRES FURTHER THERAPY Patient medication list reviewed: Yes- Quality ID# [id number]:Eligible professional attests to documenting i n the medical record they obtained, updated, or reviewed the patient's current medications. TECHNICAL DOCUMENTATION: JOB ID: [id number] [employer]- All Rights Reserved Reading location - IP/workstation name: [email or web address]
== END ==
LOC: RAD 13:12
PROVIDERS: ATTEND Internal Medicine
DX: C50.211 Malignant neoplasm of upper-inner quadrant of right female breast (principal); C79.51 Secondary malignant neoplasm of bone
CPT/HCPCS: 88342 ×2; 88341 ×2; 88305 ×2; 19083; 77065; J3490

== ENCOUNTER → 2019-07-15 | Outpatient (CLI) | payer MEDICAID ==
--- NOTE | 2019-07-15 14:52 | RADIOLOGY REPORT (SQ) ---
EXAM DESCRIPTION: CT CERVICAL SPINE WITHOUT COMPLETED DATE/TIME: 07/15/2019 8:09 am REASON FOR STUDY: BREAST CA C50.211 MALIG NEOPLM OF UPPER-INNER QUADRANT OF RIGHT FEMALE COMPARISON: CT cervical spine 04/01/2019 MRI neck soft tissues/skullbase 04/01/2019 Ultrasound-guided right breast biopsy 04/28/2019 TECHNIQUE: Axial images acquired through the cervical spine without intravenous contrast. Images re viewed with lung, soft tissue and bone windows. Reconstructed coronal and sagittal MPR images review ed. Images stored on PACS. All CT scanners at this facility use dose modulation, iterative reconstruction, and/or weight based d osing when appropriate to reduce radiation dose to as low as reasonably achievable (ALARA). [facility]: Dose Right [facility]: CareDose [facility]: Dose Right [facility]: Teradose 4D [facility]: [employer] RADIATION DOSE: CT Rad equipment meets quality standard of care and radiation dose reduction techniq ues were employed. CTDIvol: 21.5 mGy. DLP: 449 mGy-cm. mGy. LIMITATIONS: None. FINDINGS: A 3.5 cm x 2.5 cm calcified/ossified expansile left occipital mass is present. This is si milar in size compared to 04/01/2019 CT exam, however there is now diffuse increased density througho ut the lesion from calcification or ossification. Again, this mass narrows the left hypoglossal darne l and extends into the left occipital condyles and inferior left mastoid air cells. This mass also n arrows the left jugular foramen. Local mass effect is stable compared to 04/01/2019. These changes are best shown on coronal image 16/34, axial images 1-8, and sagittal image 20. No other lytic or blastic bony lesions. ALIGNMENT: Normal alignment cervical vertebral bodies MINERALIZATION: Normal mineralization of cervical vertebral bodies VERTEBRAL BODIES: No fractures or dislocation. DISCS: No significant posterior disc bulging. However, facet and uncovertebral hypertrophy causes mi ld right foraminal narrowing at C2-3. There is high-grade right and moderate left foraminal narrowing at C3-4. High-grade bilateral C4-5 and C5-6 foraminal narrowing. Moderate bilateral C6-7 foraminal narrowing. FACETS, LATERAL MASSES, POSTERIOR ELEMENTS: No fractures. No dislocation. No acute findings. HARDWARE: None in the spine. VISUALIZED RIBS: No fractures. LUNG APICES AND SOFT TISSUES: No significant or acute findings. OTHER: No other significant finding. IMPRESSION: Treatment effect with sclerosis or ossification of the left occipital bone metastatic le hernando. No change in size or local mass effect. TECHNICAL DOCUMENTATION: JOB ID: [id number] Quality ID # 436: Final reports with documentation of one or more dose reduction techniques (e.g., Au tomated exposure control, adjustment of the mA and/or kV according to patient size, use of iterative reconstruction technique) 2010 [employer]- All Rights Reserved Reading location - IP/workstation name: [email or web address]
== END ==
LOC: RAD 08:00
PROVIDERS: ATTEND Physician Assistant Medical
DX: C50.211 Malignant neoplasm of upper-inner quadrant of right female breast (principal); M48.02 Spinal stenosis, cervical region
CPT/HCPCS: 72125

== ENCOUNTER → 2019-07-19 | Outpatient (CLI) | payer MEDICAID ==
--- NOTE | 2019-07-19 12:04 | RADIOLOGY REPORT (SQ) ---
EXAM DESCRIPTION: CT CHEST WITH COMPLETED DATE/TIME: 07/19/2019 8:26 am REASON FOR STUDY: MALIG NEOPLM OF UPPER-INNER QUADRANT OF RIGHT FEMALE BREAST C50.211 MALIG NEOPLM OF UPPER-INNER QUADRANT OF RIGHT FEMALE COMPARISON: 04/02/2019 and 03/26/2016. TECHNIQUE: CT scan of the chest performed using helical scanning technique with dynamic intravenous contrast injection. Images reviewed with lung, soft tissue and bone windows. Reconstructed coronal and sagittal MPR and MIP images reviewed. All images stored on PACS. All CT scanners at this facility use dose modulation, iterative reconstruction, and/or weight based d osing when appropriate to reduce radiation dose to as low as reasonably achievable (ALARA). [facility]: Dose Right [facility]: CareDose [facility]: Dose Right [facility]: Teradose 4D [facility]: [employer] CONTRAST TYPE AND DOSE: Omnipaque 350- low osmolar. RENAL FUNCTION: BUN 13 creatinine 1.2. RADIATION DOSE: . LIMITATIONS: None. FINDINGS: LUNGS AND PLEURA: 4.0 mm nodule in the left upper lobe (axial series 6, image 34). No oth er nodules or masses. No infiltrates. No pleural effusion. No pneumothorax. HILAR AND MEDIASTINAL STRUCTURES: No identified masses or abnormal nodes. HEART AND VASCULAR STRUCTURES: No aneurysm or dissection. No central pulmonary emboli. No pericardi al effusion. HARDWARE: None in the chest. UPPER ABDOMEN: See separate report of the CT of the abdomen. THYROID AND OTHER SOFT TISSUES: No masses. No adenopathy. BONES: No significant finding. OTHER: Right breast mass, slightly smaller. IMPRESSION: 1. 4.0 MM NODULE IN THE LEFT UPPER LOBE. THIS IS UNCHANGED SINCE THE PRIOR STUDY IN MARCH 2019 BUT WAS NOT PRESENT IN JULY 2015. NEEDS TO BE FOLLOWED. COULD BE A SMALL METASTASIS. 2. RIGHT BREAST MASS IS SLIGHTLY SMALLER. 3. NO OTHER SIGNIFICANT FINDINGS IN THE CHEST. TECHNICAL DOCUMENTATION: JOB ID: [id number] Quality ID # 436: Final reports with documentation of one or more dose reduction techniques (e.g., Au tomated exposure control, adjustment of the mA and/or kV according to patient size, use of iterative reconstruction technique) 2010 [employer]- All Rights Reserved Reading location - IP/workstation name: [email or web address]
--- NOTE | 2019-07-19 12:07 | RADIOLOGY REPORT (SQ) ---
EXAM DESCRIPTION: CT ABD/PELVIS WITH IV ONLY COMPLETED DATE/TIME: 07/19/2019 8:26 am REASON FOR STUDY: MALIG NEOPLM OF UPPER-INNER QUADRANT OF RIGHT FEMALE BREAST C50.211 MALIG NEOPLM OF UPPER-INNER QUADRANT OF RIGHT FEMALE COMPARISON: 04/02/2019. TECHNIQUE: CT scan of the abdomen and pelvis performed using helical scanning technique with dynamic intravenous contrast injection. No oral contrast. Images reviewed with lung, soft tissue, and bone windows. Reconstructed coronal and sagittal MPR images reviewed. Delayed images for evaluation of the urinary system also acquired. All images stored on PACS. All CT scanners at this facility use dose modulation, iterative reconstruction, and/or weight based d osing when appropriate to reduce radiation dose to as low as reasonably achievable (ALARA). [facility]: Dose Right [facility]: CareDose [facility]: Dose Right [facility]: Teradose 4D [facility]: [employer] CONTRAST TYPE AND DOSE: contrast/concentration: Isovue 350.00 mg/ml; Total Contrast Delivered: 100.0 ml; Total Saline Delivered: 72.0 ml RENAL FUNCTION: BUN 13 creatinine 1.2. RADIATION DOSE: CT Rad equipment meets quality standard of care and radiation dose reduction techniq ues were employed. CTDIvol: 6.3 - 10.9 mGy. DLP: 1399 mGy-cm.. LIMITATIONS: None. FINDINGS: LOWER CHEST: No significant findings. No nodules or infiltrates. LIVER: Normal size. No masses. No dilated ducts. SPLEEN: Normal size. No focal lesions. PANCREAS: No masses. No significant calcifications. No adjacent inflammation or peripancreatic fluid collections. Pancreatic duct not dilated. GALLBLADDER: No identified stones by CT criteria. No inflammatory changes to suggest cholecystitis. ADRENAL GLANDS: No significant masses or asymmetry. RIGHT KIDNEY AND URETER: No solid masses. No significant calcifications. No hydronephrosis or hyd roureter. LEFT KIDNEY AND URETER: No solid masses. No significant calcifications. No hydronephrosis or hydr oureter. AORTA AND VESSELS: No aneurysm. No dissection. Renal arteries, SMA, celiac without stenosis. RETROPERITONEUM: No retroperitoneal adenopathy, hemorrhage or masses. BOWEL AND PERITONEAL CAVITY: No masses or inflammatory changes. No free fluid or peritoneal masses. APPENDIX: Normal. PELVIS: No mass. No free fluid. Normal bladder. ABDOMINAL WALL: No masses. No hernias. BONES: No significant or acute findings. OTHER: No other significant finding. IMPRESSION: NO SIGNIFICANT OR ACUTE FINDING IN THE ABDOMEN OR PELVIS ON CT SCAN WITH IV CONTRAST. N O EVIDENCE OF METASTATIC INVOLVEMENT. TECHNICAL DOCUMENTATION: JOB ID: [id number] Quality ID # 436: Final reports with documentation of one or more dose reduction techniques (e.g., Au tomated exposure control, adjustment of the mA and/or kV according to patient size, use of iterative reconstruction technique) 2010 [facility]- All Rights Reserved Reading location - IP/workstation name: [email or web address]
--- NOTE | 2019-07-19 13:38 | RADIOLOGY REPORT (SQ) ---
EXAM DESCRIPTION: NM WHOLE BODY BONE SCAN COMPLETED DATE/TIME: 07/19/2019 12:49 pm REASON FOR STUDY: MALIG NEOPLM OF UPPER-INNER QUADRANT OF RIGHT FEMALE BREAST C50.211 MALIG NEOPLM OF UPPER-INNER QUADRANT OF RIGHT FEMALE COMPARISON: CT chest abdomen pelvis 07/19/2019 CT C-spine 07/15/2019 RADIONUCLIDE AND DOSE: 20 millicuries Tc99m HDP. The route of agent administration: Intravenous. ADDITIONAL DRUGS AND DOSES: None. TECHNIQUE: Routine delayed images at 3 hours post radionuclide injection acquired of the bony skelet on including anterior and posterior whole-body projections and additional focused images as needed. LIMITATIONS: None. FINDINGS: BONES: There is fairly intense uptake in left occiput. There is focal uptake at the left AC joint. There is intense focal uptake the proximal tibial metaphysis on the right. KIDNEYS: Symmetric excretion without obstruction. OTHER: No other significant finding. IMPRESSION: There is uptake in the left occiput, where there is a known metastatic lesion. The upta ke in the left AC joint is likely degenerative. Intense uptake in the right tibial metaphysis could represent a metastatic lesion. Recommend knee radiographs. COMMENT: Quality measure 147: Current bone scan is compared with any available plain radiographs, p rior bone scans, and CT/MRI. TECHNICAL DOCUMENTATION: JOB ID: [id number] 2010 [employer]- All Rights Reserved Reading location - IP/workstation name: [email or web address]
== END ==
LOC: RAD 08:01
PROVIDERS: ATTEND Physician Assistant Medical
DX: C50.211 Malignant neoplasm of upper-inner quadrant of right female breast (principal); R91.1 Solitary pulmonary nodule
CPT/HCPCS: 78306; 71260; 74177; A9561; Q9969

== ENCOUNTER → 2019-11-08 | Outpatient (CLI) | payer MEDICAID ==
--- NOTE | 2019-11-08 09:30 | RADIOLOGY REPORT (SQ) ---
EXAM DESCRIPTION: CT CHEST WITH IMAGES COMPLETED DATE/TIME: 11/08/2019 9:11 am REASON FOR STUDY: MALIG NEOPLM OF UPPER-INNER QUADRANT OF RIGHT FEMALE BREAST C50.211 MALIG NEOPLM OF UPPER-INNER QUADRANT OF RIGHT FEMALE COMPARISON: 07/19/2019 and 04/02/2019. TECHNIQUE: CT scan of the chest performed using helical scanning technique with dynamic intravenous contrast injection. Images reviewed with lung, soft tissue and bone windows. Reconstructed coronal and sagittal MPR and MIP images reviewed. All images stored on PACS. All CT scanners at this facility use dose modulation, iterative reconstruction, and/or weight based d osing when appropriate to reduce radiation dose to as low as reasonably achievable (ALARA). [facility]: Dose Right [facility]: CareDose [facility]: Dose Right [facility]: Teradose 4D [facility]: [employer] CONTRAST TYPE AND DOSE: 100 mL Omnipaque 350- low osmolar. RENAL FUNCTION: Creatinine 1.1. RADIATION DOSE: CT Rad equipment meets quality standard of care and radiation dose reduction techniq ues were employed. CTDIvol: 7.8 - 12.9 mGy. DLP: 1705 mGy-cm. . LIMITATIONS: None. FINDINGS: LUNGS AND PLEURA: The 4 mm nodule in the left upper lobe is unchanged (axial series 6, charisse ge 30). No new nodules or masses. No pneumothorax. No effusions. HILAR AND MEDIASTINAL STRUCTURES: No identified masses or abnormal nodes. HEART AND VASCULAR STRUCTURES: No aneurysm or dissection. No central pulmonary emboli. No pericardi al effusion. HARDWARE: None in the chest. UPPER ABDOMEN: No significant findings. Limited exam. THYROID AND OTHER SOFT TISSUES: Right breast mass unchanged. No adenopathy. BONES: No significant finding. OTHER: No other significant finding. IMPRESSION: STABLE CT OF THE CHEST WITH IV CONTRAST. 4 MM NODULE IN THE LEFT UPPER LOBE UNCHANGED. RIGHT BREAST MASS UNCHANGED. NO NEW FINDINGS. TECHNICAL DOCUMENTATION: JOB ID: [id number] Quality ID # 436: Final reports with documentation of one or more dose reduction techniques (e.g., Au tomated exposure control, adjustment of the mA and/or kV according to patient size, use of iterative reconstruction technique) 2010 [employer]- All Rights Reserved Reading location - IP/workstation name: [email or web address]
--- NOTE | 2019-11-08 09:32 | RADIOLOGY REPORT (SQ) ---
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 TECHNIQUE: CT scan of the abdomen and pelvis performed using helical scanning technique with dynamic intravenous contrast injection. No oral contrast. Images reviewed with lung, soft tissue, and bone windows. Reconstructed coronal and sagittal MPR images reviewed. Delayed images for evaluation of the urinary system also acquired. All images stored on PACS. All CT scanners at this facility use dose modulation, iterative reconstruction, and/or weight based d osing when appropriate to reduce radiation dose to as low as reasonably achievable (ALARA). [facility]: Dose Right [facility]: CareDose [facility]: Dose Right [facility]: Teradose 4D [facility]: [employer] CONTRAST TYPE AND DOSE: contrast/concentration: Isovue 350.00 mg/ml; Total Contrast Delivered: 100.0 ml; Total Saline Delivered: 72.0 ml RENAL FUNCTION: Creatinine 1.1. RADIATION DOSE: . LIMITATIONS: None. FINDINGS: LOWER CHEST: No significant findings. No nodules or infiltrates. LIVER: Normal size. No masses. No dilated ducts. SPLEEN: Normal size. No focal lesions. PANCREAS: No masses. No significant calcifications. No adjacent inflammation or peripancreatic fluid collections. Pancreatic duct not dilated. GALLBLADDER: No identified stones by CT criteria. No inflammatory changes to suggest cholecystitis. ADRENAL GLANDS: No significant masses or asymmetry. RIGHT KIDNEY AND URETER: No solid masses. No significant calcifications. No hydronephrosis or hyd roureter. LEFT KIDNEY AND URETER: No solid masses. No significant calcifications. No hydronephrosis or hydr oureter. AORTA AND VESSELS: No aneurysm. No dissection. Renal arteries, SMA, celiac without stenosis. RETROPERITONEUM: No retroperitoneal adenopathy, hemorrhage or masses. BOWEL AND PERITONEAL CAVITY: No masses or inflammatory changes. No free fluid or peritoneal masses. APPENDIX: Normal. PELVIS: No mass. No free fluid. Normal bladder. ABDOMINAL WALL: No masses. No hernias. BONES: No significant or acute findings. OTHER: No other significant finding. IMPRESSION: NO SIGNIFICANT OR ACUTE FINDING IN THE ABDOMEN OR PELVIS ON CT SCAN WITH IV CONTRAST. N O EVIDENCE OF METASTASIS. TECHNICAL DOCUMENTATION: JOB ID: [id number] Quality ID # [id number]: Final reports with documentation of one or more dose reduction techniques (e.g., Au tomated exposure control, adjustment of the mA and/or kV according to patient size, use of iterative reconstruction technique) 2010 [employer]- All Rights Reserved Reading location - IP/workstation name: [email or web address]
--- NOTE | 2019-11-08 13:15 | RADIOLOGY REPORT (SQ) ---
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 RADIONUCLIDE AND DOSE: 21.0 millicuries Tc99m MDP. The route of agent administration: Intravenous. ADDITIONAL DRUGS AND DOSES: None. TECHNIQUE: Routine delayed images at 3 hour post radionuclide injection acquired of the bony skeleto n including anterior and posterior whole-body projections and additional focused images as needed. LIMITATIONS: None. FINDINGS: BONES: Again seen is increased uptake in the left occipital bone, left acromioclavicular j oint, and proximal metaphysis of the right tibia. No other areas of unusual uptake in the skeleton. KIDNEYS: Symmetric excretion without obstruction. OTHER: No other significant finding. IMPRESSION: ACTIVITY IN THE LEFT OCCIPITAL BONE, UNCHANGED, SECONDARY TO KNOWN METASTATIC LESION. A CTIVITY IN THE LEFT ACROMIOCLAVICULAR JOINT IS PROBABLY DUE TO DEGENERATIVE JOINT DISEASE. ACTIVITY IN THE PROXIMAL METAPHYSIS OF THE RIGHT TIBIA, UNCHANGED FROM THE PRIOR STUDY. RECOMMEND CORRELATION WITH X-RAY OF THE RIGHT KNEE. COMMENT: Quality measure 147: Current bone scan is compared with any available plain radiographs, p rior bone scans, and CT/MRI. TECHNICAL DOCUMENTATION: JOB ID: [id number] 2010 [employer]- All Rights Reserved Reading location - IP/workstation name: [email or web address]
== END ==
LOC: RAD 08:39
PROVIDERS: ATTEND Internal Medicine
DX: C50.211 Malignant neoplasm of upper-inner quadrant of right female breast (principal)
CPT/HCPCS: 82565; 78306; 71260; 74177; A9561; Q9969

== ENCOUNTER → 2019-11-11 | Outpatient (CLI) | payer MEDICAID ==
--- NOTE | 2019-11-11 12:53 | RADIOLOGY REPORT (SQ) ---
EXAM DESCRIPTION: KNEE RIGHT 4 VIEWS IMAGES COMPLETED DATE/TIME: 11/11/2019 11:36 am REASON FOR STUDY: PAIN IN RIGHT KNEE (M25.561) M25.561 PAIN IN RIGHT KNEE COMPARISON: Bone scan from 11/08/2019. NUMBER OF VIEWS: Four views. TECHNIQUE: AP, lateral, and both oblique radiographic images acquired of the right knee. LIMITATIONS: None. FINDINGS: MINERALIZATION: Normal. BONES: There is an eccentric sclerotic lesion in the posteromedial aspect of the proximal tibial meta physis that demonstrated increased uptake on the prior bone scans. There is no fracture. JOINT: No effusion. The quadriceps and patellar tendon silhouettes are intact SOFT TISSUES: No soft tissue swelling or radiopaque foreign body. OTHER: No other finding. IMPRESSION: Eccentric sclerotic lesion in the posteromedial aspect of the proximal tibial metaphysis that demonstrated increase uptake on the prior bone scans concerning for a metastasis. TECHNICAL DOCUMENTATION: JOB ID: [id number] 2010 [employer]- All Rights Reserved Reading location - IP/workstation name: [email or web address]
== END ==
LOC: RAD 11:17
PROVIDERS: ATTEND Physician Assistant Medical
DX: M25.561 Pain in right knee (principal)